=== PATIENT | male | born 1975 | race African-American/Black ===

== ENCOUNTER 2021-01-29 15:17 | Emergency (ER) | payer OTHER ==
[~2021-01-29] VITALS: Ht 172.7 cm; Wt 109.0 kg
[2021-01-29] MEDS ORDERED: DOXYCYCLINE HYCLATE 100MG CAPSULE PO ONE (16:15)
[2021-01-29] MEDS ORDERED: LIDOCAINE HCL 1% 20ML VIAL (Pyxis) INJ INFIL ONE (16:15)
[2021-01-29] MEDS ORDERED: CEFTRIAXONE SODIUM 500 MG/VIAL IM ONE (16:15)
[2021-01-29 17:10] LABS: CLARITY URINE CLEAR (CLEAR); COLOR URINE YELLOW (YELLOW); KETONES URINE TRACE (NEGATIVE); LEUKOCYTE ESTERASE URINE 1+ (NEGATIVE); NITRITE URINE NEGATIVE (NEGATIVE); OCCULT BLOOD URINE TRACE (NEGATIVE); PH URINE 5.5 (4.5-8.0); PROTEIN URINE NEGATIVE (NEGATIVE); UROBILINOGEN URINE 0.2 E.U./dL (0.2-1.0)
[2021-01-29] MEDS ORDERED: DOXY100C2 MT (17:34)
[2021-01-29 18:18] VITALS: BP 133/78
[2021-02-02 07:08] LABS: NEISSERIA GONORRHOEAE NAA Negative (Negative)
== END 2021-01-29 18:18 | disposition home or self-care (01) ==
LOC: ER 15:17
DX: L72.8 Other follicular cysts of the skin and subcutaneous tissue (principal); Z20.2 Contact with and (suspected) exposure to infections with a predominantly sexual mode of transmission; R03.0 Elevated blood-pressure reading, without diagnosis of hypertension
CPT/HCPCS: 81003; 87491; 87591; 96372; 99283; J0696; J3490

== ENCOUNTER 2023-02-15 16:02 | Emergency (ER) | payer MEDICAID, OTHER ==
[~2023-02-15] VITALS: Ht 172.7 cm; Wt 118.0 kg
[~2023-02-15 16:02] MED LIST: DOXY100C5 MT
[2023-02-15] MEDS ORDERED: OXYCODONE HCL/ACETAMINOPHEN 5/325MG TABLET PO ONE (17:30)
[2023-02-15 17:55] LABS: BASOPHILS % 0.5 % (0.0-2.0); EOSINOPHILS % 0.5 % (0.0-5.0); HEMATOCRIT. 43.9 % (42.0-52.0); LYMPHOCYTES % 11.6 % (20.0-50.0); MEAN CORPUSCULAR HEMOGLOBIN 31.1 pg (28.0-32.0); MEAN PLATELET VOLUME 7.6 fl (7.4-10.4); MONOCYTES % 8.7 % (2.0-8.0); NEUTROPHILS % 78.7 % (40.0-76.0); PLATELET 238 x1000/uL (130-400); RED BLOOD CELL COUNT 4.83 mill/uL (4.7-6.1); RED CELL DISTRIBUTION WIDTH 13.6 % (11.6-14.6)
[2023-02-15 18:01] LABS: CHLORIDE 103 mEq/L (98-107)
[2023-02-15 18:03] LABS: INR 1.1; PROTHROMBIN TIME 11.3 sec (9.6-11.0)
[2023-02-15 18:05] LABS: CLARITY URINE CLEAR (CLEAR); COLOR URINE DARK YELLOW (YELLOW); KETONES URINE 1+ (NEGATIVE); LEUKOCYTE ESTERASE URINE 2+ (NEGATIVE); NITRITE URINE NEGATIVE (NEGATIVE); OCCULT BLOOD URINE 2+ (NEGATIVE); PROTEIN URINE 1+ (NEGATIVE); SPECIFIC GRAVITY URINE 1.031 (1.005-1.030)
[2023-02-15] MEDS ORDERED: LIDOCAINE HCL 1% 20ML VIAL (Pyxis) INJ INFIL ONE (19:00)
[2023-02-15] MEDS ORDERED: CEFTRIAXONE SODIUM 1 G/VIAL IM ONE (19:00)
[2023-02-15] MEDS ORDERED: DOXY100T2 MT (21:56)
[2023-02-15] MEDS ORDERED: CIPR500T5 MT (21:56)
[2023-02-15] MEDS ORDERED: IBUP-2028 MT (21:56)
[2023-02-15 22:00] VITALS: BP 137/75
== END 2023-02-15 22:20 | disposition home or self-care (01) ==
LOC: ER 16:02
DX: R10.31 Right lower quadrant pain (principal); N39.0 Urinary tract infection, site not specified; N50.812 Left testicular pain; N50.811 Right testicular pain; N43.3 Hydrocele, unspecified
CPT/HCPCS: 36415; 74176; 76870; 80053; 81003; 83690; 85025; 85610; 87086; 87491; 87591; 93976; 96372; 99285; J0696; J3490; Z7610

== ENCOUNTER 2024-12-05 10:04 | Emergency (ER) | payer MEDICAID ==
[~2024-12-05] VITALS: Ht 175.3 cm; Wt 90.0 kg
[~2024-12-05 10:04] MED LIST changes: +CIPR500T5 MT; +DOXY100T2 MT; +IBUP-2028 MT
[2024-12-05 10:05] VITALS: O2SAT 95
[2024-12-05] MEDS: ONDANSETRON HCL 4MG/2ML INJ IV STA (10:31)
[2024-12-05] MEDS: KETOROLAC 30MG/ML VIAL IV STA (10:31)
[2024-12-05 10:37] LABS: CARBON DIOXIDE 23 mEq/L (21-32); CHLORIDE 106 mEq/L (98-107); SODIUM 140 mEq/L (136-145)
[2024-12-05 10:38] LABS: BASOPHILS % 0.2 % (0.0-2.0); CALCIUM 9.2 mg/dL (8.7-10.4); EOSINOPHILS % 0.1 % (0.0-5.0); HEMATOCRIT. 46.8 % (42.0-52.0); HEMOGLOBIN. 15.7 g/dL (14.0-18.0); LYMPHOCYTES % 11.8 % (20.0-50.0); MEAN CORPUSCULAR HEMOGLOBIN 31.7 pg (28.0-32.0); MEAN CORPUSCULAR HGB CONC 33.5 g/dL (31.0-37.0); MEAN CORPUSCULAR VOLUME 94.5 fL (80.0-94.0); MEAN PLATELET VOLUME 7.8 fl (7.4-10.4); MONOCYTES % 6.4 % (2.0-8.0); NEUTROPHILS % 81.5 % (40.0-76.0); PLATELET 245 x1000/uL (130-400); RED BLOOD CELL COUNT 4.95 mill/uL (4.7-6.1); RED CELL DISTRIBUTION WIDTH 12.9 % (11.6-14.6); WHITE BLOOD COUNT 9.5 x1000/uL (4.5-11.0)
[2024-12-05 10:43] LABS: CREATININE 1.1 mg/dL (0.6-1.3); GLUCOSE 166 mg/dL (70-105); UREA NITROGEN BLOOD 15 mg/dL (9-23)
[2024-12-05 10:44] LABS: ALANINE AMINOTRANSFERASE 34 IU/L (10-49); ASPARTATE AMINOTRANSFERASE 27 IU/L (<34)
[2024-12-05 10:45] LABS: ALBUMIN 4.3 g/dL (3.2-4.8); BILIRUBIN DIRECT 0.4 mg/dL (<=3.0); BILIRUBIN TOTAL 1.4 mg/dL (0.1-1.0); PROTEIN TOTAL 7.8 g/dL (6.0-8.3)
[2024-12-05] MEDS: SODIUM CHLORIDE 0.9% 1,000 ML IV ONE (10:47)
[2024-12-05 10:54] LABS: PROTHROMBIN TIME 10.8 sec (9.6-11.0)
[2024-12-05 11:08] LABS: ETHANOL BLOOD < 10 mg/dL (<10)
[2024-12-05] MEDS ORDERED: ONDA-239 PO (11:50)
[2024-12-05] MEDS ORDERED: DICY-18 MT (11:50)
[2024-12-05 11:51] VITALS: BP 126/71; PULSE 87; RESP 16; TEMP 37.1; O2SAT 95
== END 2024-12-05 12:14 | disposition home or self-care (01) ==
LOC: ER 10:27
DX: R11.2 Nausea with vomiting, unspecified (principal); R19.7 Diarrhea, unspecified
CPT/HCPCS: 80076; 80048; 80320; 83605; 83690; 85025; 85610; 36415; 74176; 96361; 96374; 96375; 99285; J1885; J2405; J7030; Z7610 ×2; A4606; G0480